=== PATIENT | female | born 1965 | race Caucasian/White ===

== ENCOUNTER 2016-05-25 12:16 | Emergency (ER) | payer OTHER ==
--- NOTE | ~2016-05-25 | EKG ---
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
[~2016-05-25 12:16] MED LIST: PHENERGAN 25 MG25 M1 PO; TRAMADOL 50 MG50 MG PO; ZANTAC 150MG T150 MG PO
[2016-05-25 14:41] LABS: ABSOLUTE NEUTROPHILS 5.9 thou/uL (1.4-8.2); BASOPHILS 0.6 % (0.0-2.0); EOSINOPHILS 1.8 % (0.0-3.0); HEMATOCRIT 39.5 % (37.0-47.0); HEMOGLOBIN 13.8 gm/dL (12.0-15.0); MCH 32.1 pg (26.0-34.0); MCHC 34.8 g/dL (28.0-37.0); MCV 92.1 fL (80.0-100.0); MONOCYTES 5.9 % (1.0-8.0); PLATELET COUNT 254 thou/uL (150-400); POLYS 64.7 % (36.0-66.0); RBC 4.29 mil/uL (4.20-5.00); RDW 12.6 % (10.5-14.5); WBC 9.1 thou/uL (4.0-11.0)
[2016-05-25 14:42] LABS: MANUAL DIFF NO
[2016-05-25 14:52] LABS: CALCIUM 8.7 mg/dL (8.5-10.1); CREATININE 0.7 mg/dL (0.6-1.3); POTASSIUM 3.4 mmol/L (3.5-5.1)
[2016-05-25] MEDS ORDERED: NORCO 5-325 TA1 EACH PO (15:19)
[2016-05-25 15:50] VITALS: BP 153/95
== END 2016-05-25 16:47 | disposition home or self-care (01) ==
LOC: ER 12:16
PROVIDERS: Emergency Medicine
DX: N64.4 Mastodynia (principal)